=== PATIENT | male | born 1970 | race Caucasian/White ===

== ENCOUNTER → 2023-07-21 06:29 | Day surgery (SDC) | payer BC, SELFPAY | LOC: GI 06:29 | PROVIDERS: ATTENDING PHYSICIAN Internal Medicine Gastroenterology | DX: Z12.11 Encounter for screening for malignant neoplasm of colon (principal); D12.4 Benign neoplasm of descending colon; K64.8 Other hemorrhoids | CPT/HCPCS: 45380; 88305 ==